=== PATIENT | female | born 1965 | race Caucasian/White ===

== ENCOUNTER → 2016-11-20 | Outpatient (CLI) | payer BC ==
--- NOTE | 2016-11-20 13:51 | BD ---
EXAMINATION TYPE: MG DEXA axial skeleton. DATE OF EXAM: 11/20/2016 COMPARISON: NONE CLINICAL HISTORY: Postmenopausal female. Height: 62.5 IN Weight: 139 LBS FRAX RISK QUESTIONS: Alcohol (3 or more units per day): NO Family History (Parent hip fracture): NO Glucocorticoids (More than 3mos): NO (Ex: prednisone, prednisolone, methylprednisolone, dexamethasone, and hydrocortisone). History of Fracture in Adulthood: NO Secondary Osteoporosis: 1. Type 1 Diabetes: NO 2. Hyperthyroidism: NO 3. Menopause before 45: NO 4. Malnutrition: NO 5. Chronic liver disease: NO Rheumatoid Arthritis: NO Current Tobacco Use: YES RISK FACTORS HISTORY OF: Active: YES Diet low in dairy products/other sources of calcium: YES Postmenopausal woman: NOT YET If Premenopausal, do you have irregular periods: YES LAST ONE 04/2016 Take estrogen and/or progesterone medications: NOT NOW How long: TOOK CONTROL 16 - 19 MEDICATIONS: Additional Medications: NONE EXAM MEASUREMENTS: Bone mineral densitometry was performed using the [employer] System. Bone mineral density as measured about the Lumbar spine is: ----- L1-L4(G/cm2): 1.209 T Score Values are as follows: ----- L2: -0.1 ----- L3: 0.5 ----- L4: 0.7 ----- L1-L4: 0.2 Bone mineral density BASELINE Bone mineral density about the R hip (g/cm2): 0.984 Bone mineral density about the L hip (g/cm2): 1.038 T Score values are as follows: -----R Neck: -0.4 -----L Neck: 0.0 -----R Total: -0.6 -----L Total: -0.1 Bone mineral density BASELINE IMPRESSION: NORMAL STUDY. 10 YEAR FRACTURE RISK: MAJOR OSTEOPOROTIC FRACTURE RISK: 4.0% HIP FRACTURE RISK: 0.2% NOTE: T-SCORE=SD OF THE YOUNG ADULT MEAN.
== END | disposition home or self-care (01) ==
LOC: RADBDWWP 08:56
PROVIDERS: ATTEND Family Medicine
DX: Z12.31 Encounter for screening mammogram for malignant neoplasm of breast (principal); Z13.820 Encounter for screening for osteoporosis
CPT/HCPCS: 77080; G0202

== ENCOUNTER → 2017-08-02 | Outpatient (CLI) | payer BC ==
--- NOTE | 2017-08-02 22:21 | MR ---
EXAMINATION TYPE: MR knee RT wo con DATE OF EXAM: 08/02/2017 COMPARISON: NONE HISTORY: 52-year-old female with right knee pain and swelling since 11/2016 TECHNIQUE: Multiplanar, multisequence imaging of the right knee is performed without IV contrast. FINDINGS: There is some increased signal along the intact ACL. PCL, MCL, and LCL complex are intact. Prominent 3.8 x 1.5 cm multilocular ganglion cyst tracking along the popliteus tendon sheath. Some degenerative signal is noted in the posterior horn of the medial meniscus without discrete menis favio tear. Mild irregular cartilage loss within the medial compartment. The small radial tear along the inner margin of the body of the lateral meniscus and focal T1 dark bates bchondral signal along the posterior margin of the lateral tibial plateau measuring 7 mm wide and 1 c m AP. Associated mild marrow edema in the overlying cartilage irregularity. Mild diffuse thinning of patellofemoral compartment articular cartilage without any high-grade cartil age injury seen. Edema is seen within the suprapatellar fat pad. Physiologic knee joint fluid with a trace early Can 's cyst formation. Normal popliteal artery anatomy with mild diffuse muscular atrophy. There is a 1.5 x 0.6 cm ganglion cyst at the origin of the medial head gastrocnemius. Mild heterogeneity of marrow signal suggesting red marrow hyperplasia which can be seen in setting of anemia, obesity, smoking, and chronic disease. No suspicious bone marrow replacement. IMPRESSION: 1. Small inner margin radial tear body of the lateral meniscus. There is focal cartilage loss along t he posterior aspect of the lateral compartment and either associated subchondral marrow signal change s versus old 10 x 7 mm nondepressed subchondral impaction injury, posterior aspect of the lateral tib ial plateau. 2. Degenerative signal within the posterior horn of the medial meniscus without discrete medial menis favio tear. Mild superficial irregular cartilage loss in the medial compartment. 3. Mild mucoid degeneration of the ACL versus grade 1 sprain. 4. Prominent 3.8 x 1.5 cm multilocular ganglion cyst along the popliteus tendon sheath. 5. Some edema within the suprapatellar fat pad. Clinically correlate as findings can be seen in the s etting of fat pad impingement syndrome.
== END | disposition home or self-care (01) ==
LOC: RADMRIMAIN 17:40
PROVIDERS: ATTEND Family Medicine
DX: S83.281A Other tear of lateral meniscus, current injury, right knee, initial encounter (principal); M67.461 Ganglion, right knee; M94.8X6 Other specified disorders of cartilage, lower leg; R60.0 Localized edema

== ENCOUNTER → 2017-10-08 | Outpatient (CLI) | payer BC ==
--- NOTE | 2017-10-08 10:41 | P.STRESS ---
- Stress Test Note Stress Test Results/Findings: Exam Performed: stress echo exercise Exam Date: 10/08/17 Reason for Exam: CP Height: 5 ft 3 in Weight: 63.503 kg Protocol: STRESS ECHO Stage: III Duration of Exercise: 9 Resting Heart Rate: 73 Resting Blood Pressure: 127/67 Maximum Achieved Heart Rate: 144 Maximum Achieved Blood Pressure: 143 85% PMHR: 168 100% PMHR: 86 METS: 10.1 Technologist Comment: Stress Test Results/Findings: This is a 52-year-old female with history of smoking and family history of ischemic heart disease evaluated her chest pains. Stress data: Baseline EKG showed a sinus rhythm with normal ND interval and QRS duration. Blood pressure at rest is 127/67 with pulse rate of 73. Patient walked on the Sathya protocol for 9 minutes achieving a maximal heart rate of 144 with a blood pressure of 149/82. EKGs taken during and after exercise did not reveal any changes to suggest ischemia. Echo data: Baseline echo images showed normal wall motion and thickening. It exercise echo images showed augmentation of wall motion and thickening in all the segments. Final impression: #1. Negative stress test #2. Negative stress echo.
--- NOTE | 2017-10-09 16:18 | ECHOS ---
Stress Test Results/Findings: Exam Performed: stress echo exercise Exam Date: 10/08/17 Reason for Exam: CP Height: 5 ft 3 in Weight: 63.503 kg Protocol: STRESS ECHO Stage: III Duration of Exercise: 9 Resting Heart Rate: 73 Resting Blood Pressure: 127/67 Maximum Achieved Heart Rate: 144 Maximum Achieved Blood Pressure: 143 85% PMHR: 168 100% PMHR: 86 METS: 10.1 Technologist Comment: Stress Test Results/Findings: This is a 52-year-old female with history of smoking and family history of ischemic heart disease evaluated her chest pains. Stress data: Baseline EKG showed a sinus rhythm with normal KS interval and QRS duration. Blood pressure at rest is 127/67 with pulse rate of 73. Patient walked on the Sathya protocol for 9 minutes achieving a maximal heart rate of 144 with a blood pressure of 149/82. EKGs taken during and after exercise did not reveal any changes to suggest ischemia. Echo data: Baseline echo images showed normal wall motion and thickening. It exercise echo images showed augmentation of wall motion and thickening in all the segments. Final impression: #1. Negative stress test #2. Negative stress echo. ZACH
== END | disposition home or self-care (01) ==
LOC: RADNMMAIN 09:37
PROVIDERS: ATTEND Family Medicine
DX: R07.89 Other chest pain (principal)
CPT/HCPCS: 93351

== ENCOUNTER → 2020-02-03 | Outpatient (CLI) | payer BC ==
--- NOTE | 2020-02-04 11:53 | MM ---
Reason for exam: screening (asymptomatic). Last mammogram was performed 3 years and 2 months ago. History: Patient is postmenopausal. Family history of breast cancer in mother at age 60. 2 benign excisional biopsies of the right breast, 2009. Physical Findings: A clinical breast exam by your physician is recommended on an annual basis and results should be correlated with mammographic findings. MG 3D Screening Mammo W/Cad Bilateral CC and MLO view(s) were taken. Prior study comparison: November 20, 2016, bilateral MG screening mammo w CAD. November 26, 2013, mammogram, performed at [facility]. The breast tissue is heterogeneously dense. This may lower the sensitivity of mammography. No significant changes when compared with prior studies. ASSESSMENT: Benign, BI-RAD 2 RECOMMENDATION: Routine screening mammogram of both breasts in 1 year.
== END | disposition home or self-care (01) ==
LOC: RADMAMWWP 15:39
PROVIDERS: ATTEND Family Medicine
DX: Z12.31 Encounter for screening mammogram for malignant neoplasm of breast (principal)
CPT/HCPCS: 77063; 77067

== ENCOUNTER → 2021-02-24 | Outpatient (CLI) | payer BC ==
--- NOTE | 2021-02-24 07:42 | CT ---
EXAMINATION TYPE: CT sinus wo con DATE OF EXAM: 02/24/2021 COMPARISON: NONE HISTORY: Chronic sinusitis per order. Sinus and facial pain and pressure for 4 months not relieved by antibiotic per patient. CT DLP: 616 mGycm. Automated Exposure Control for Dose Reduction was Utilized. TECHNIQUE: CT scan of the sinuses is performed without contrast, axial images are obtained, coronal r eformatted images are also reviewed. FINDINGS: Suspect small mucous retention cyst or polyp with patchy fluid in the inferior dependent ri ght maxillary sinus. Mild mucosal thickening throughout the ethmoid sinuses bilaterally with some pat snow opacification anteriorly bilaterally. Mild to moderate mucosal thickening inferior right frontal sinus with some dependent fluid. Minimal mucosal thickening posterior inferior left frontal sinus. Mi ld mucosal thickening in the left sphenoid sinus. There is 1.2 cm mucous retention cyst or polyp in t he anterior inferior medial right sphenoid sinus. The ostiomeatal complex is patent bilaterally on co josé miguel image 34. Visualized portion of mastoid air cells show no abnormal opacification. Symmetric bilateral enophthal mos. Superior left posterior frontal calcified dura or possibly small calcified meningioma axial neena ge 81 otherwise Visualized portion of brain parenchyma is unremarkable. IMPRESSION: Mild acute on mild to moderate chronic paranasal sinus disease as detailed above.
== END | disposition home or self-care (01) ==
LOC: RADCTMAIN 06:48
PROVIDERS: ATTEND Nurse Practitioner
DX: J12.9 Viral pneumonia, unspecified (principal)
CPT/HCPCS: 70486

== ENCOUNTER → 2023-05-11 | Outpatient (CLI) | payer BC ==
--- NOTE | 2023-05-14 16:56 | MM ---
Reason for Exam: Screening (asymptomatic). Last mammogram was performed 3 year(s) and 3 month(s) ago. Patient History: Menarche at age 14. First Full-Term at age 24. Postmenopausal. 2009, Benign Excisional Biopsy on the right side. 2010, Benign Excisional Biopsy on the right side. Mother had breast cancer, age 60. Risk Values: Rivka 5 year model risk: 3.4%. NCI Lifetime model risk: 19.3%. Prior Study Comparison: 11/26/2013 Screening Mammogram, [facility]. 11/20/2016 Bilateral Screening Mammogram, [facility]. 02/03/2020 Bilateral Screening Mammogram, [facility]. Tissue Density: The breast tissue is heterogeneously dense. This may lower the sensitivity of mammography. Findings: Analyzed By CAD. Microclip right breast from prior biopsy. Unchanged focal asymmetry medial right breast. On the right MLO view, there is an area of asymmetric density centrally at a middle depth that appears more defined. This may represent superimposition shadow but further evaluation is recommended. Otherwise, no significant change. Overall Assessment: Incomplete: need additional imaging evaluation, BI-RAD 0 Management: Special View Mammogram of the right breast. Diagnostic Breast Ultrasound of the right breast. Additional views to include spot 3-D MLO and 3-D lateral views. Targeted right breast ultrasound if any persisting abnormality [facility] will attempt to contact patient to return for supplemental views and ultrasound if indicated. Electronically signed and approved by: Sandeep Reed M.D. Radiologist
== END | disposition home or self-care (01) ==
LOC: RADMAMWWP 09:16
PROVIDERS: ATTEND Family Medicine
DX: Z12.31 Encounter for screening mammogram for malignant neoplasm of breast (principal); Z78.0 Asymptomatic menopausal state; Z80.3 Family history of malignant neoplasm of breast
CPT/HCPCS: 77063; 77067

== ENCOUNTER → 2023-05-16 | Outpatient (CLI) | payer BC ==
--- NOTE | 2023-05-16 10:33 | MM ---
Reason for Exam: Clinical finding. Last screening mammogram was performed less than 1 month ago. Patient History: Menarche at age 14. First Full-Term at age 24. Postmenopausal. 2010, Benign Excisional Biopsy on the right side. 2010, Benign Excisional Biopsy on the right side. Mother had breast cancer, age 60. Risk Values: Rivka 5 year model risk: 3.4%. NCI Lifetime model risk: 19.3%. Tissue Density: Right: The breast tissue is heterogeneously dense. This may lower the sensitivity of mammography. Findings: Analyzed By CAD. The questioned area of asymmetric density centrally in the right breast MLO view does not persist on additional spot MLO. Findings compatible with superimposition shadow. Overall Assessment: Benign, BI-RAD 2 Management: Screening Mammogram of both breasts in 1 year. See note below in regards to patient's increased 5 year Rivka score. Results were given to the patient verbally at the time of exam. Patient should continue monthly self-breast exams. A clinical breast exam by your physician is recommended on an annual basis. This exam should not preclude additional follow-up of suspicious palpable abnormalities. Note on Rivka scores and lifetime risk: 1. A Rivka score greater than 3% is considered moderate risk. If this is the case, consider specialist referral to assess eligibility for a risk reducing agent. 2. If overall lifetime risk for the development of breast cancer is 20% or higher, the patient may qualify for future screening with alternating mammogram and breast MRI. Electronically signed and approved by: Sandeep Reed M.D. Radiologist
== END | disposition home or self-care (01) ==
LOC: RADMAMWWP 09:57
PROVIDERS: ATTEND Family Medicine
DX: R92.331 Mammographic heterogeneous density, right breast (principal); Z80.3 Family history of malignant neoplasm of breast; Z78.0 Asymptomatic menopausal state
CPT/HCPCS: 77061; 77065